=== PATIENT | female | born 1955 | race African-American/Black ===

== ENCOUNTER 2017-06-10 21:10 | Emergency (ER) | payer MEDICARE, OTHER ==
[~2017-06-10] VITALS: Ht 167.6 cm; Wt 74.0 kg
[~2017-06-10 21:10] MED LIST: CYCL-319; GABA300C16; HYDR-3504
[2017-06-10 21:18] VITALS: Ht 167.6 cm; Wt 74.0 kg
--- NOTE | 2017-06-10 23:29 | ERD ---
ER Documentation Chief Complaint Date/Time DATE: 06/10/17 TIME: 23:28 Chief Complaint sp fall 7 steps stairs. low back pain HPI 62-year-old female presents to emergency department for complaints of lower back pain after falling of stairs today. Patient fell down stairs, 7 steps, landed on her buttock area. Patient complaining of pain throbbing pain, 8/10 scale, is worse upon touching the area and walking. Patient did not take any medications of symptoms. Patient denies any incontinence. Patient denies any fever or chills. Patient denies any numbness or tingling. ROS All systems reviewed and are negative except as per history of present illness. Medications Home Meds Reported Medications Hydrocodone Bit-Acetaminophen (Hydrocodone-APAP) 10-325MG Tablet, Q6H 04/08/14 Gabapentin* (Gabapentin*) 300 Mg Capsule, TID 04/08/14 Cyclobenzaprine Hcl* (Cyclobenzaprine Hcl*) 10 Mg Tablet, DAILY 04/08/14 Allergies Allergies: Coded Allergies: No Known Allergy (Unverified , 04/08/14) PMhx/Soc History of Surgery: Yes (hysterectomy partial 1995) Anesthesia Reaction: No Hx Neurological Disorder: No Hx Respiratory Disorders: No Hx Cardiac Disorders: Yes (htn) Hx Psychiatric Problems: No Hx Alcohol Use: No Hx Substance Use: No Hx Tobacco Use: No FmHx Family History: No coronary disease, No diabetes, No other Physical Exam Vitals Vital Signs Date Time Temp Pulse Resp B/P Pulse Ox O2 Delivery O2 Flow Rate FiO2 06/10/17 21:18 98.3 82 20 164/69 100 Physical Exam GENERAL: The patient is well developed and appropriate for usual state of health, in no apparent distress. CHEST: Clear to auscultation bilaterally. There are no rales, wheezes or rhonchi. HEART: Regular rate and rhythm. No murmurs, clicks, rubs or gallops. No S3 or S4. ABDOMEN: Soft, nontender and nondistended. Good bowel sounds. No rebound or guarding. No gross peritonitis. No gross organomegaly or masses. No Corley sign or McBurney point tenderness. BACK: No midline or flank tenderness. Noted tenderness on palpation on the lower lumbar area, able to do full range of motion without any restriction but with pain. EXTREMITIES: Equal pulses bilaterally. There is no peripheral clubbing, cyanosis or edema. No focal swelling or erythema. Full range of motion. Grossly neurovascularly intact. NEURO: Alert and oriented. Cranial nerves 2-12 intact. Motor strength in all 4 extremities with 5/5 strength. Sensation grossly intact. Normal speech and gait. SKIN: There is no apparent rash or petechia. The skin is warm and dry. HEMATOLOGIC AND LYMPHATIC: There is no evidence of excessive bruising or lymphedema. No gross cervical, axillary, or inguinal lymphadenopathy. Results 24 hrs Current Medications Medications (Trade) Dose Ordered Sig/Lisa Route PRN Reason Start Time Stop Time Status Last Admin Dose Admin Acetaminophen/ Hydrocodone Bitart ([place] (5/325)) 1 tab ONCE ONCE PO 06/10/17 23:30 06/10/17 23:31 DC 06/10/17 23:40 Patient was given medication for pain here in emergency department, after treatment, patient verbalized feeling much better. Patient's pain is improved. PROCEDURE: CT L-Spine. CLINICAL INDICATION: Back pain TECHNIQUE: Section spiral CT images through the lumbar spine without contrast. Multiplanar reconstructions. .The CTDIvol is 17.2 save mGy and the DLP is 663.1 mGycm. One or more of the following dose reduction techniques were used: automated exposure control, adjustment of the mA and/or kV according to patient size, or use of iterative reconstruction technique. COMPARISON: None FINDINGS: Alignment anatomic. Vertebral body and disk space heights are preserved. Small anterior osteophytes.. No fracture is seen. No lytic or blastic bony lesion is seen. Atherosclerotic vascular calcification is seen. There may be a small of free fluid in the pelvis. The urinary bladder is slightly distended. T12-L1: The disk is normal in height. No disk protrusion or extrusion. No significant canal or foraminal narrowing. L1-2: The disk is normal in height. No disk protrusion or extrusion. No significant canal or foraminal narrowing. L2-3: The disk is normal in height. Minimal diffuse central disk bulge. Mild facet and ligamentous hypertrophic changes contributing to slight bilateral foraminal narrowing and a degree of central canal stenosis with AP canal diameter of 8 mm. L3-4: The disk is normal in height. Diffuse concentric disk bulge with facet and ligamentous hypertrophic changes contributing to mild right and moderately tight left foraminal narrowing. Short pedicles also contribute to central canal stenosis with AP canal diameter of 7 mm. L4-5: The disk is normal in height. Moderate diffuse concentric disk bulge with facet and ligamentous hypertrophic changes contributing to mild central canal stenosis with AP canal diameter of 9 mm and mild bilateral foraminal narrowing. L5-S1: The disk is normal in height. Posterior osteophytes with mild diffuse concentric disk bulge contributing to mild bilateral foraminal narrowing. IMPRESSION: Multilevel lumbar spondylosis with disk bulges and canal and foraminal narrowing from L2-3 through L4-5 as described. RPTAT: [facility] Physician Nguyen Date Time Electronically viewed and signed by Katy Hdez Physician on 06/11/2017 01 :59 LE/ CC: HANK NGUYEN [employer] Procedures/MDM Medical Decision Making: Patient's pain is most likely consistent with a back contusion, patient also has history of chronic back pain from degenerative disc disease was also seen in the CT scan.. There is no suspicion for neurovascular compromise. Patient has intact sensation and circulation of the affected extremity and distal extremities. No incontinence, no suspicion for cauda equina syndrome, no saddle anesthesia, no symptoms of any acute bacterial infection, no symptoms of any perirectal abscesses, pilonidal cyst.There is low suspicion for septic arthritis. Patient does not have any fever. No symptoms of any aortic dissection or aortic aneurysm. Radiology exam does not show any fracture or dislocation Disposition: Home. Patient is given prescription for ibuprofen for mild to moderate pain, [place] for severe pain, Flexeril for muscle spasm. Patient was advised to avoid heavy lifting , apply warm compresses on affected area. Patient was advised that if symptoms are worse, numbness, tingling, high fever, unable to move joint, worsening symptoms, to return to emergency department immediately. Otherwise, patient is advised to follow up with the primary care doctor in 5-7 days for reevaluation of symptoms. Departure Diagnosis: Primary Impression: Back pain Back pain location: low back pain Chronicity: acute Back pain laterality: bilateral Sciatica presence: without sciatica Qualified Code: M54.5 - Acute bilateral low back pain without sciatica Condition: Stable Patient Instructions: Back Pain (Acute Or Chronic) Additional Instructions: Patient is given prescription for ibuprofen for mild to moderate pain, [place] for severe pain, Flexeril for muscle spasm. Patient was advised to avoid heavy lifting , apply warm compresses on affected area. Patient was advised that if symptoms are worse, numbness, tingling, high fever, unable to move joint, worsening symptoms, to return to emergency department immediately. Otherwise, patient is advised to follow up with the primary care doctor in 5-7 days for reevaluation of symptoms. HANK NGUYEN NP Jun 10, 2017 23:29
[2017-06-10] MEDS ORDERED: HYDROCODONE/APAP (5/325) TAB PO ONE (23:30)
--- NOTE | 2017-06-11 02:00 | RADRPT ---
PROCEDURE: CT L-Spine. CLINICAL INDICATION: Back pain TECHNIQUE: Section spiral CT images through the lumbar spine without contrast. Multiplanar recons tructions. .The CTDIvol is 17.2 save mGy and the DLP is 663.1 mGycm. One or more of the following dose reduction techniques were used: automated exposure control, adjustment of the mA and/or kV acco rding to patient size, or use of iterative reconstruction technique. COMPARISON: None FINDINGS: Alignment anatomic. Vertebral body and disk space heights are preserved. Small anterior osteophyte s.. No fracture is seen. No lytic or blastic bony lesion is seen. Atherosclerotic vascular calcif ication is seen. There may be a small of free fluid in the pelvis. The urinary bladder is slightly distended. T12-L1: The disk is normal in height. No disk protrusion or extrusion. No significant canal or for aminal narrowing. L1-2: The disk is normal in height. No disk protrusion or extrusion. No significant canal or juan inal narrowing. L2-3: The disk is normal in height. Minimal diffuse central disk bulge. Mild facet and ligamentous hypertrophic changes contributing to slight bilateral foraminal narrowing and a degree of central c anal stenosis with AP canal diameter of 8 mm. L3-4: The disk is normal in height. Diffuse concentric disk bulge with facet and ligamentous hypert rophic changes contributing to mild right and moderately tight left foraminal narrowing. Short pedi cles also contribute to central canal stenosis with AP canal diameter of 7 mm. L4-5: The disk is normal in height. Moderate diffuse concentric disk bulge with facet and ligamento us hypertrophic changes contributing to mild central canal stenosis with AP canal diameter of 9 mm a nd mild bilateral foraminal narrowing. L5-S1: The disk is normal in height. Posterior osteophytes with mild diffuse concentric disk bulge c ontributing to mild bilateral foraminal narrowing. IMPRESSION: Multilevel lumbar spondylosis with disk bulges and canal and foraminal narrowing from L2-3 through L 4-5 as described. RPTAT: [facility] Physician Nguyen Date Time Electronically viewed and signed by Physician Nguyen on 06/11/2017 01:59 LIZABETH
[2017-06-11] MEDS ORDERED: HYDR-906 PO (02:12)
[2017-06-11] MEDS ORDERED: CYCL-319 PO (02:12)
[2017-06-11] MEDS ORDERED: IBUP-1542 PO (02:12)
[2017-06-11 02:22] VITALS: BP 185/91; PULSE 84; RESP 19; TEMP 97.2
== END 2017-06-11 02:22 | disposition home or self-care (01) ==
LOC: FTE 21:10
DX: M54.5 Low back pain (principal); I10 Essential (primary) hypertension
CPT/HCPCS: 72131